=== PATIENT | male | born 1975 | race Two or more races ===

== ENCOUNTER 2019-10-07 18:33 | Emergency (ER) | payer SELFPAY ==
[~2019-10-07] VITALS: Ht 177.8 cm; Wt 77.1 kg
[2019-10-07 20:00] VITALS: BP 147/84
--- NOTE | 2019-10-07 21:41 | RAD ---
ANKLE LEFT 3V DATE: 10/07/2019 8:23 PM INDICATION: Pain after falling one week ago COMPARISON: None. FINDINGS: Bones: There is no evidence of acute fracture or dislocation. Joints: The ankle mortise is congruent. No widening of the distal tibiofibular syndesmosis. Miscellaneous: None. IMPRESSION: No evidence of acute fracture. Electronically signed by: Kofi Smith MD (10/07/2019 9:38 PM) [facility]
--- NOTE | 2019-10-08 04:00 | PHYS DOC ---
Past Medical History Past Medical History: No Pertinent History Past Surgical History: No Surgical History Alcohol Use: None Drug Use: None Adult General Chief Complaint Chief Complaint: FOOT INJURY PAIN HPI HPI Patient is a 43 year male WHO presents with left ankle injury. Patient slipped and twisted ankle ankle approximately one week ago. Reports persistent pain with weightbearing. He has not been evaluated for symptoms prior to today's ED visit. [] Review of Systems Review of Systems Review symptoms as per history of present illness. All other review symptoms are negative. All other systems were reviewed and found to be within normal limits, except as documented in this note. Allergies Allergies Allergies Coded Allergies Type Severity Reaction Last Updated Verified No Known Drug Allergies 10/07/19 No Physical Exam Physical Exam Constitutional: Well developed, well nourished, no acute distress, non-toxic appearance. [] HENT: Normocephalic, atraumatic, bilateral external ears normal, oropharynx moist, no oral exudates, nose normal. [] Extremities: Lower extremity, left ankle tenderness swelling, no deformity or bruising.[] Neurologic: Alert and oriented X 3, normal motor function, normal sensory function, no focal deficits noted. [] Psychologic: Affect normal, judgement normal, mood normal. [] Current Patient Data Vital Signs Vital Signs Date Time Temp Pulse Resp B/P (MAP) Pulse Ox O2 Delivery O2 Flow Rate FiO2 10/07/19 20:00 98.6 71 18 147/84 (105) 100 Room Air 98.6 EKG EKG [] Radiology/Procedures Radiology/Procedures [Left ankle x-ray: No obvious displaced fracture PER RADIOLOGY report] Course & Med Decision Making Course & Med Decision Making Pertinent Labs and Imaging studies reviewed. (See chart for details) [Patient placed in splint. Recommendations are for supportive care and PCP follow-up.] Dragon Disclaimer Dragon Disclaimer This electronic medical record was generated, in whole or in part, using a voice recognition dictation system. Departure Departure Impression: Primary Impression: Left ankle sprain Disposition: HOME, SELF-CARE Condition: GOOD Patient Instructions: Ankle Sprain, [id number] Additional Instructions: Please wear airsplint and take ibuprofen for pain and use crutches. Do not attempt to place weight on left leg if painful. Follow up with your PCP in 5 days for re-evaluation and review of official radiology report. CHRISTA YI DO Oct 08, 2019 04:00
== END 2019-10-07 21:49 | disposition home or self-care (01) ==
LOC: ER 18:33
DX: S93.402A Sprain of unspecified ligament of left ankle, initial encounter (principal); W18.39XA Other fall on same level, initial encounter; Y93.89 Activity, other specified; Y92.89 Other specified places as the place of occurrence of the external cause; Y99.8 Other external cause status
CPT/HCPCS: 73610; 99284; L4350

== ENCOUNTER 2021-01-06 09:56 | Emergency (ER) | payer SELFPAY ==
[~2021-01-06] VITALS: Ht 175.3 cm; Wt 93.2 kg
[2021-01-06] MEDS ORDERED: AMOX1TAB61 PO (10:14)
[2021-01-06] MEDS ORDERED: NAPR-682 PO (10:14)
--- NOTE | 2021-01-06 10:14 | PHYS DOC ---
Past Medical History Past Medical History: No Pertinent History Past Surgical History: No Surgical History Smoking Status: Never Smoker Alcohol Use: None Drug Use: None General Adult EDM: Chief Complaint: EARACHE/EAR PAIN HPI: HPI: Patient is a 45 year old male who presented to ER for evaluation of right ear pain for 1 week. Patient denies any hearing loss. Patient denies any headache, no trouble swallowing. Review of Systems: Review of Systems: Constitutional: Denies fever or chills. [] Eyes: Denies change in visual acuity. [] HENT: Denies nasal congestion or sore throat. Positive for right ear pain. Respiratory: Denies cough or shortness of breath. [] Cardiovascular: Denies chest pain or edema. [] GI: Denies abdominal pain, nausea, vomiting, bloody stools or diarrhea. [] : Denies dysuria. [] Musculoskeletal: Denies back pain or joint pain. [] Integument: Denies rash. [] Neurologic: Denies headache, focal weakness or sensory changes. [] Endocrine: Denies polyuria or polydipsia. [] Lymphatic: Denies swollen glands. [] Psychiatric: Denies depression or anxiety. [] Heart Score: Risk Factors: Risk Factors: DM, Current or recent (<one month) smoker, HTN, HLP, family history of CAD, obesity. Risk Scores: Score 0 - 3: 2.5% MACE over next 6 weeks - Discharge Home Score 4 - 6: 20.3% MACE over next 6 weeks - Admit for Clinical Observation Score 7 - 10: 72.7% MACE over next 6 weeks - Early Invasive Strategies Allergies: Allergies: Allergies Coded Allergies Type Severity Reaction Last Updated Verified No Known Drug Allergies 10/07/19 No Physical Exam: PE: Constitutional: Well developed, well nourished, no acute distress, non-toxic appearance. [] HENT: Normocephalic, atraumatic, bilateral external ears normal, oropharynx moist, no oral exudates, nose normal. RIGHT TM IS ERYTHEMA, BULGING WITH WHITISH SCALING SPOTS. RIGHT MASTOID IS NOT TENDER TO PALPATION. NO TRISMUS. Eyes: PERRLA, EOMI, conjunctiva normal, no discharge. [] Neck: Normal range of motion, no tenderness, supple, no stridor. [] Cardiovascular:Heart rate regular rhythm, no murmur [] Lungs & Thorax: Bilateral breath sounds clear to auscultation [] Abdomen: Bowel sounds normal, soft, no tenderness, no masses, no pulsatile masses. [] Skin: Warm, dry, no erythema, no rash. [] Back: No tenderness, no CVA tenderness. [] Extremities: No tenderness, no cyanosis, no clubbing, ROM intact, no edema. [] Neurologic: Alert and oriented X 3, normal motor function, normal sensory function, no focal deficits noted. [] Psychologic: Affect normal, judgement normal, mood normal. [] Current Patient Data: Labs: Current Medications Medications (Trade) Dose Ordered Sig/Bing Route PRN Reason Start Time Stop Time Status Last Admin Dose Admin Ceftriaxone Sodium (Rocephin Im) 1 gm 1X ONCE IM 01/06/21 10:15 01/06/21 10:16 Ketorolac Tromethamine (Toradol Im) 60 mg 1X ONCE IM 01/06/21 10:15 01/06/21 10:16 EKG: EKG: [] Radiology/Procedures: Radiology/Procedures: [] Course & Med Decision Making: Course & Med Decision Making Pertinent Labs and Imaging studies reviewed. (See chart for details) Patient is a 44-year-old male who presented to ER due to right ear pain for 1 week, examination show right ear otitis media, patient was given a shot of Rocephin in ER and Toradol in the ER, patient be willing Augmentin to take twice a day for 10 days. Patient was given the name of the ENT doctor for him to be followed as an outpatient Malia Disclaimer: Malia Disclaimer: This electronic medical record was generated, in whole or in part, using a voice recognition dictation system. Departure Departure Impression: Primary Impression: Otitis media, right Disposition: 01 DC HOME SELF CARE/HOMELESS Condition: STABLE Referrals: NO PCP (PCP) CAL MEZA MD Please call this ENT doctor for follow up next week. Patient Instructions: Otitis Media, Adult Additional Instructions: Thank you for visiting our Emergency Department. We appreciate you trusting us with your care. If any additional problems come up don't hesitate to return to visit us. Please follow up with your primary care provider so they can plan additional care if needed and know about the problem that you had. If symptoms worsen come back to the Emergency Department. Any concerning symptoms that start such as chest pain, shortness of air, weakness or numbness on one side of the body, running high fevers or any other concerning symptoms return to the ER. Scripts Amoxicillin/Potassium Clav (AUGMENTIN 875-125 TABLET) 1 Each Tablet 1 TAB PO BID for 10 Days, #20 TAB 0 Refills Prov: NELIA CALVIN DO 01/06/21 Naproxen Sodium (ANAPROX DS) 550 Mg Tablet 1 TAB PO BID PRN for PAIN for 15 Days, #30 TAB 0 Refills Prov: NELIA CALVIN DO 01/06/21 NELIA CALVIN DO Jan 06, 2021 10:14
[2021-01-06] MEDS ORDERED: cefTRIAXone IM 1 GM VIAL IM ONE (10:15)
[2021-01-06] MEDS ORDERED: KETOROLAC 60 MG/2 ML VIAL. IM ONE (10:15)
[2021-01-06 10:31] VITALS: BP 145/90
== END 2021-01-06 10:59 | disposition home or self-care (01) ==
LOC: ER 09:56
DX: H66.91 Otitis media, unspecified, right ear (principal)
CPT/HCPCS: 96372; 99284; J0696; J1885

== ENCOUNTER 2021-01-14 12:35 | Inpatient (IN) | payer SELFPAY ==
[~2021-01-14] VITALS: Ht 180.3 cm; Wt 92.2 kg
[~2021-01-14 12:35] MED LIST: AMOX1TAB61 PO; NAPR-682 PO
[2021-01-14] MEDS ORDERED: ACETAMINOPHEN 500 MG TABLET PO ONE (13:15)
[2021-01-14] MEDS ORDERED: IV NORMAL SALINE 1000ML BAG 1,000 ML IV ONE ×2 (13:15)
[2021-01-14] MEDS ORDERED: MORPHINE SULFATE 10 MG/ML VIAL. IV ONE ×2 (13:15→14:30)
[2021-01-14] MEDS ORDERED: PIPERACILLIN/TAZOBACTAM 4.5 GM in IV NORMAL SALINE 100ML 100 ML IV ONE (13:15)
--- NOTE | 2021-01-14 13:24 | RAD ---
EXAMINATION: XR CHEST 1V CLINICAL HISTORY: Shortness of breath, +covid EXAM DATE/TIME: 01/14/2021 1:08 PM COMPARISON: None FINDINGS: Lines, Tubes, and Devices: None. Cardiomediastinal Silhouette: Normal heart size. Lungs and Pleura: Pulmonary hypoexpansion with mild subsegmental patchy opacities in the right lower lung zone. No definite pleural effusion. No pneumothorax. Bones and Soft Tissues: Degenerative changes of the thoracic spine. IMPRESSION: Mild patchy airspace disease in the right mid to lower lung zone, nonspecific but suspicious for beatriz y infectious process. Electronically signed by: Nagi Landa DO (01/14/2021 1:22 PM) [id number]
[2021-01-14 13:52] LABS: BASO % 0 % (0-3); EOS % 0 % (0-3); HEMATOCRIT 40.9 % (39.0-53.0); HEMOGLOBIN 14.1 g/dL (13.0-17.5); LYMPH # 0.7 x10^3/uL (1.0-4.8); LYMPH % 8 % (24-48); MEAN CORPUSCULAR HEMOGLOBIN 32 pg (25-35); MEAN CORPUSCULAR HGB CONC 35 g/dL (31-37); MEAN CORPUSCULAR VOLUME 92 fL (79-100); MONO # 0.6 x10^3/uL (0.0-1.1); MONO % 6 % (0-9); NEUT # 7.7 x10^3/uL (1.8-7.7); NEUT % 85 % (31-73); PLATELET COUNT 156 x10^3/uL (140-400); RED BLOOD COUNT 4.42 x10^6/uL (4.30-5.70); RED CELL DISTRIBUTION WIDTH 12.4 % (11.5-14.5)
[2021-01-14 14:02] LABS: CALCIUM 8.1 mg/dL (8.5-10.1); GFR 80.8; POTASSIUM 3.8 mmol/L (3.5-5.1)
[2021-01-14 14:17] LABS: ALBUMIN 3.5 g/dL (3.4-5.0); ALBUMIN/GLOBULIN RATIO 0.8 (1.0-1.7); MAGNESIUM 2.1 mg/dL (1.8-2.4); TOTAL BILIRUBIN 1.1 mg/dL (0.2-1.0)
[2021-01-14 14:21] LABS: % BANDS 21 % (0-9); % BASOS 1 % (0-3); % LYMPHS 3 % (24-48); % MONOS 2 % (0-10); % SEGS 73 % (35-66); PLT ESTIMATE ADEQUATE (ADEQUATE)
[2021-01-14 14:22] LABS: TOXIC GRANULATION SLIGHT
--- NOTE | 2021-01-14 14:22 | EKG ---
[facility] [address] [place] [address] Test Date: 2021-01-14 Test Time: 13:56:18 Pat Name: MIKA STAFFORD Department: Room: Gender: M Customer Service Supervisor: : 1975 Requested By: SINAN BIRMINGHAM Order Number: [id number] Reading MD: Measurements Intervals [place] Rate: 87 P: 29 CA: 152 QRS: 137 QRSD: 98 T: 18 QT: 354 QTc: 432 Interpretive Statements SINUS RHYTHM ABNORMAL RIGHT AXIS DEVIATION ABNORMAL ECG RI6.01 No previous ECG available for comparison
[2021-01-14] MEDS ORDERED: ASPIRIN 325 MG TABLET PO ONE (14:30)
[2021-01-14] MEDS ORDERED: CONTRAST GIVEN. MC PRN (14:45)
[2021-01-14] MEDS ORDERED: IOHEXOL 350 MG/ML 100 ML VIAL. IV ONE (14:45)
[2021-01-14 14:48] LABS: BILIRUBIN,URINE SMALL (NEG); CLARITY,URINE CLEAR; COLOR,URINE AMBER; NITRITE,URINE NEGATIVE (NEG); PROTEIN,URINE 100 mg/dL (NEG-TRACE)
[2021-01-14 14:52] LABS: BARBITURATES NEG (NEG); BENZODIAZEPINES NEG (NEG); CANNABINOIDS NEG (NEG); COCAINE NEG (NEG); METHADONE NEG (NEG); OPIATES NEG (NEG); PHENCYCLIDINE NEG (NEG)
[2021-01-14 14:59] LABS: AMPHETAMINE/METHAMPHETAMINE NEG (NEG)
--- NOTE | 2021-01-14 15:02 | PDOC2 ---
SVETLANA LIM ASTROPHYSICS TEACHER 01/14/21 1502: CARDIAC CONSULT DATE OF CONSULT Date of Consult DATE: 01/14/21 TIME: 14:46 REASON FOR CONSULT Reason for Consult: Elevated troponin REFERRING PHYSICIAN Referring Physician: Wilbur SOURCE Source: Chart review, Patient HISTORY OF PRESENT ILLNESS HISTORY OF PRESENT ILLNESS This is a pleasant 45 yo male admitted for complains of shortness of breath. Reports that he has been having right ear pain and was noted a week ago for right otitis media and was given antibiotics. At home he started having fever, chills, productive cough with yellow sputum. He has not been able to go to sleep. His SOA has been increasing. No loss of taste or smell. His son and his are sick as well with the same symptoms. He then went to go get tested last Monday and was told that he was positive for the covid-19. Denies any chest pressure and no prior hx of CAD nor VTE. His troponin has been noted to be mildly elevated hence this consult. He did vomit this morning. PAST MEDICAL HISTORY Past Medical History No pertinent history PAST SURGICAL HISTORY Past Surgical History: No pertinent history FAMILY HISTORY Family History noncontributory to CV SOCIAL HISTORY Smoke: No ALCOHOL: none Drugs: None Lives: with Family CURRENT MEDICATIONS CURRENT MEDICATIONS Current Medications Medications (Trade) Dose Ordered Sig/Bing Route PRN Reason Start Time Stop Time Status Last Admin Dose Admin Piperacillin Sod/ Tazobactam Sod 4.5 gm/Sodium Chloride 100 ml @ 200 mls/hr 1X ONCE IV 01/14/21 13:15 01/14/21 13:44 DC 01/14/21 13:45 Sodium Chloride 1,000 ml @ 1,000 mls/hr 1X ONCE IV 01/14/21 13:15 01/14/21 14:14 DC 01/14/21 13:26 Sodium Chloride 1,000 ml @ 1,000 mls/hr 1X ONCE IV 01/14/21 13:15 01/14/21 14:14 DC 01/14/21 14:35 Acetaminophen (Tylenol) 1,000 mg 1X ONCE PO 01/14/21 13:15 01/14/21 13:16 DC 01/14/21 13:27 Morphine Sulfate (Morphine Sulfate) 5 mg 1X ONCE IV 01/14/21 13:15 01/14/21 13:16 DC 01/14/21 13:27 Morphine Sulfate (Morphine Sulfate) 5 mg 1X ONCE IV 01/14/21 14:30 01/14/21 14:31 DC 01/14/21 14:40 Aspirin (Darinel Aspirin) 325 mg 1X ONCE PO 01/14/21 14:30 01/14/21 14:31 DC 01/14/21 14:39 ALLERGIES ALLERGIES: Coded Allergies: No Known Drug Allergies (Unverified , 10/07/19) ROS Review of System 14 point ROS evaluated with pertinent positives noted per HPI PHYSICAL EXAM General: Alert, Oriented X3, Cooperative, No acute distress HEENT: Atraumatic, Mucous membr. moist/pink Lungs: Other (diminished) Heart: Regular rate (SR), Other (distant heart sounds) Abdomen: Soft, No tenderness Extremities: No cyanosis, No edema Skin: No breakdown, No significant lesion Neuro: Normal speech, Sensation intact Psych/Mental Status: Mental status NL, Mood NL MUSCULOSKELETAL: Osteoarthritic changes both hands VITALS/I&O VITALS/I&O: Vital Signs Date Time Temp Pulse Resp B/P (MAP) Pulse Ox O2 Delivery O2 Flow Rate FiO2 01/14/21 12:35 103.1 96 24 137/83 (101) 92 Room Air 103.1 LABS Lab: Laboratory Tests Test 01/14/21 13:25 White Blood Count 9.0 x10^3/uL (4.0-11.0) Red Blood Count 4.42 x10^6/uL (4.30-5.70) Hemoglobin 14.1 g/dL (13.0-17.5) Hematocrit 40.9 % (39.0-53.0) Mean Corpuscular Volume 92 fL (79-100) Mean Corpuscular Hemoglobin 32 pg (25-35) Mean Corpuscular Hemoglobin Concent 35 g/dL (31-37) Red Cell Distribution Width 12.4 % (11.5-14.5) Platelet Count 156 x10^3/uL (140-400) Neutrophils (%) (Auto) 85 % (31-73) H Lymphocytes (%) (Auto) 8 % (24-48) L Monocytes (%) (Auto) 6 % (0-9) Eosinophils (%) (Auto) 0 % (0-3) Basophils (%) (Auto) 0 % (0-3) Neutrophils # (Auto) 7.7 x10^3/uL (1.8-7.7) Lymphocytes # (Auto) 0.7 x10^3/uL (1.0-4.8) L Monocytes # (Auto) 0.6 x10^3/uL (0.0-1.1) Eosinophils # (Auto) 0.0 x10^3/uL (0.0-0.7) Basophils # (Auto) 0.0 x10^3/uL (0.0-0.2) Segmented Neutrophils % 73 % (35-66) H Band Neutrophils % 21 % (0-9) H Lymphocytes % 3 % (24-48) L Monocytes % 2 % (0-10) Basophils % 1 % (0-3) Toxic Granulation Slight Platelet Estimate Adequate (ADEQUATE) D-Dimer ([place]ecille) 0.71 ug/mlFEU (0.00-0.50) H Sodium Level 134 mmol/L (136-145) L Potassium Level 3.8 mmol/L (3.5-5.1) Chloride Level 94 mmol/L (98-107) L Carbon Dioxide Level 26 mmol/L (21-32) Anion Gap 14 (6-14) Blood Urea Nitrogen 14 mg/dL (8-26) Creatinine 1.0 mg/dL (0.7-1.3) Estimated GFR (Cockcroft-Gault) 80.8 BUN/Creatinine Ratio 14 (6-20) Glucose Level 102 mg/dL (70-99) H Lactic Acid Level 1.1 mmol/L (0.4-2.0) Calcium Level 8.1 mg/dL (8.5-10.1) L Magnesium Level 2.1 mg/dL (1.8-2.4) Total Bilirubin 1.1 mg/dL (0.2-1.0) H Aspartate Amino Transferase (AST) 97 U/L (15-37) H Alanine Aminotransferase (ALT) 124 U/L (16-63) H Alkaline Phosphatase 78 U/L (46-116) Troponin I Quantitative 0.359 ng/mL (0.000-0.055) TV-Jqg-G-Type Natriuretic Peptide 42 pg/mL (0-124) Total Protein 8.0 g/dL (6.4-8.2) Albumin 3.5 g/dL (3.4-5.0) Albumin/Globulin Ratio 0.8 (1.0-1.7) L Lipase 209 U/L (73-393) Procalcitonin < 0.10 ng/mL (0.00-0.10) Laboratory Tests 01/14/21 13:25 Laboratory Tests 01/14/21 13:25 ASSESSMENT/PLAN ASSESSMENT/PLAN 1. Covid-19 Pneumonia with high fever and dyspnea and WBC noted with left shift 2. Right AOM 3. Elevated DDIMER with Abnormal EKG noted with S1Q3T3 with right axis deviation: will need to rule out PE 4. Mild troponin: trop at 0.3, Suspect demand mediated from covid-19 PNA, CP free. 5. Mild transaminitis Recommendations 1. ASA. CTA chest 2. FLP tomorrow 3. Covid-19 treatment initiation per PCP 4. Outpt TTE when full recovered from covid 5. Trend trop, supportive care. LARRY LAWSON MD 01/14/21 1808: CARDIAC CONSULT ASSESSMENT/PLAN ASSESSMENT/PLAN Patient seen and evaluated. I agree with our nurse practitioners assessment and plan as above. COVID-19 pneumonia. Treatment as per the primary and probable pulmonary ser vices. Elevated D-dimer. CTA of the chest shows no PE. Minimally elevated troponin at 0.3. Consistent with demand ischemia. No chest pain. We will continue to trend troponin. Future echocardiogram as per Covid guidelines. SVETLANA LIM APRN Jan 14, 2021 15:02 LARRY LAWSON MD Jan 14, 2021 18:08
[2021-01-14 15:16] LABS: RBC,URINE 0 /HPF (0-2)
[2021-01-14 15:17] LABS: WBC,URINE OCC /HPF (0-4)
[2021-01-14 15:19] LABS: BACTERIA,URINE 0 /HPF (0-FEW)
--- NOTE | 2021-01-14 15:29 | RAD ---
CT angiography chest with contrast PQRS statement: CT scans at this facility use dose reduction including either automated exposure cont rol, iterative reconstructions, and /or weight based radiation dosing via mA and kV modification when appropriate to reduce radiation dose to as low as reasonably achievable. Contrast: 100 mL of opaque intravenous contrast. 3-D reconstructions of the arteries acquired. HISTORY: Positive Covid infection. Cough. Shortness of breath. FINDINGS: Borderline cardiomegaly. Aorta and esophagus are unremarkable. There is left coronary calci fied plaque. No pulmonary artery emboli. There is mild mediastinal and hilar adenopathy largest subca rinal mediastinal lymph node measuring 2.3 x 1.2 cm and the largest hilar lymph nodes measuring 1.2 x 1.0 cm. There is a bronchus stenosis from the right upper lobe bronchus. Trachea unremarkable. There are bilateral heterogeneous groundglass opacities involving both the upper and lower lung zone. No p neumothorax. No pleural effusions. Bones are unremarkable. IMPRESSION: 1. No pulmonary artery emboli. 2. Extensive bilateral heterogeneous pulmonary groundglass opacities most typical of an infectious/in flammatory process. This is a typical imaging pattern reported of (COVID -19) pneumonia (peripheral b ilateral groundglass opacities with or without consolidation or crazy paving, or a reverse halo sign) . Other processes such as influenza pneumonia and organizing pneumonia, as can be seen with drug [place] and connective tissue disease, can cause a similar imaging pattern. Consider follow-up CT imagin g in 3 months to document that these resolve. 3. Mild mediastinal and hilar adenopathy. Attention on follow-up in 3 months is advised. Electronically signed by: Layo Haley MD (01/14/2021 3:26 PM) [facility]
[2021-01-14] MEDS ORDERED: DEXAMETHASONE SOD PHOS 20 MG/5 ML VIAL. IV ONE (15:30)
[2021-01-14] MEDS ORDERED: HYDROmorphone 2 MG/ML VIAL IVP ONE (15:30)
[2021-01-14] MEDS ORDERED: AZITHRMYCN 500MG IVPB FOR OMNI 250 ML IV ONE (15:30)
--- NOTE | 2021-01-14 17:16 | PHYS DOC ---
Past Medical History Past Medical History: Other Additional Past Medical Histor: POSITIVE FOR COVID-19 01/10/21 Past Surgical History: No Surgical History Smoking Status: Never Smoker Alcohol Use: Occasionally Drug Use: None General Adult EDM: Chief Complaint: SHORTNESS OF BREATH HPI: HPI: Patient is a 45 year old male who presents to the ED today complaining of fever, shortness of breath, symptoms began 2 days ago. Patient is also complaining of moderate right ear pain that began 1 week ago, he states he was seen in the ED and was diagnosed with otitis media and sent home with antibiotics. He states has not obtained much relief with this antibiotics. He is also complaining of productive cough for 2 days. He states on Monday he was tested for COVID-19 and was positive. He states his and son have similar symptoms. Denies any chest pain. States symptoms are worse on exertion Review of Systems: Review of Systems: Constitutional: Reports fever Eyes: Denies change in visual acuity. [] HENT: Reports right ear pain. Denies nasal congestion or sore throat. [] Respiratory: Reports cough and shortness of breath. [] Cardiovascular: Denies chest pain or edema. [] GI: Denies abdominal pain, nausea, vomiting, bloody stools or diarrhea. [] : Denies dysuria. [] Musculoskeletal: Denies back pain or joint pain. [] Integument: Denies rash. [] Neurologic: Denies headache, focal weakness or sensory changes. [] ] Psychiatric: Denies depression or anxiety. [] Heart Score: Risk Factors: Risk Factors: DM, Current or recent (<one month) smoker, HTN, HLP, family history of CAD, obesity. Risk Scores: Score 0 - 3: 2.5% MACE over next 6 weeks - Discharge Home Score 4 - 6: 20.3% MACE over next 6 weeks - Admit for Clinical Observation Score 7 - 10: 72.7% MACE over next 6 weeks - Early Invasive Strategies Current Medications: Current Medications Medications (Trade) Dose Ordered Sig/Bing Start Time Stop Time Status Last Admin Dose Admin Acetaminophen (Tylenol) 1,000 mg 1X ONCE 01/14/21 13:15 01/14/21 13:16 DC 01/14/21 13:27 1,000 MG Aspirin (Darinel Aspirin) 325 mg 1X ONCE 01/14/21 14:30 01/14/21 14:31 DC 01/14/21 14:39 325 MG Azithromycin 250 ml @ 250 mls/hr 1X ONCE 01/14/21 15:30 01/14/21 16:29 DC 01/14/21 15:47 250 MLS/HR Dexamethasone Sodium Phosphate (Decadron) 10 mg 1X ONCE 01/14/21 15:30 01/14/21 15:31 DC 01/14/21 15:46 10 MG Hydromorphone HCl (Dilaudid) 1 mg 1X ONCE 01/14/21 15:30 01/14/21 15:31 DC 01/14/21 15:46 1 MG Info (CONTRAST GIVEN -- Rx MONITORING) 1 each PRN DAILY PRN 01/14/21 14:45 01/16/21 14:44 Iohexol (Omnipaque 350 Mg/ml) 100 ml 1X ONCE 01/14/21 14:45 01/14/21 14:46 DC 01/14/21 14:55 100 ML Morphine Sulfate (Morphine Sulfate) 5 mg 1X ONCE 01/14/21 14:30 01/14/21 14:31 DC 01/14/21 14:40 5 MG Piperacillin Sod/ Tazobactam Sod 4.5 gm/Sodium Chloride 100 ml @ 200 mls/hr 1X ONCE 01/14/21 13:15 01/14/21 13:44 DC 01/14/21 13:45 200 MLS/HR Sodium Chloride 1,000 ml @ 1,000 mls/hr 1X ONCE 01/14/21 13:15 01/14/21 14:14 DC 01/14/21 14:35 1,000 MLS/HR Allergies: Allergies: Allergies Coded Allergies Type Severity Reaction Last Updated Verified No Known Drug Allergies 10/07/19 No Physical Exam: PE: Constitutional: Well developed, well nourished, no acute distress, non-toxic appearance. [] HENT: Normocephalic, atraumatic, bilateral external ears normal, oropharynx moist, no oral exudates, nose normal. Right TM cannot be visualized, there is mild amount of exudate in the ear canal. Eyes: PERRLA, EOMI, conjunctiva normal, no discharge. [] Neck: Normal range of motion, no tenderness, supple, no stridor. [] Cardiovascular:Heart rate regular rhythm, no murmur [] Lungs & Thorax: Bilateral breath sounds clear to auscultation [] Abdomen: Bowel sounds normal, soft, no tenderness, no masses, no pulsatile masses. [] Skin: Warm, dry, no erythema, no rash. [] Back: No tenderness, no CVA tenderness. [] Extremities: No tenderness, no cyanosis, no clubbing, ROM intact, no edema. [] Neurologic: Alert and oriented X 3, normal motor function, normal sensory function, no focal deficits noted. [] Psychologic: Affect normal, judgement normal, mood normal. [] Current Patient Data: Labs: Laboratory Tests Test 01/14/21 13:25 01/14/21 14:30 White Blood Count 9.0 x10^3/uL (4.0-11.0) Red Blood Count 4.42 x10^6/uL (4.30-5.70) Hemoglobin 14.1 g/dL (13.0-17.5) Hematocrit 40.9 % (39.0-53.0) Mean Corpuscular Volume 92 fL (79-100) Mean Corpuscular Hemoglobin 32 pg (25-35) Mean Corpuscular Hemoglobin Concent 35 g/dL (31-37) Red Cell Distribution Width 12.4 % (11.5-14.5) Platelet Count 156 x10^3/uL (140-400) Neutrophils (%) (Auto) 85 % (31-73) H Lymphocytes (%) (Auto) 8 % (24-48) L Monocytes (%) (Auto) 6 % (0-9) Eosinophils (%) (Auto) 0 % (0-3) Basophils (%) (Auto) 0 % (0-3) Neutrophils # (Auto) 7.7 x10^3/uL (1.8-7.7) Lymphocytes # (Auto) 0.7 x10^3/uL (1.0-4.8) L Monocytes # (Auto) 0.6 x10^3/uL (0.0-1.1) Eosinophils # (Auto) 0.0 x10^3/uL (0.0-0.7) Basophils # (Auto) 0.0 x10^3/uL (0.0-0.2) Segmented Neutrophils % 73 % (35-66) H Band Neutrophils % 21 % (0-9) H Lymphocytes % 3 % (24-48) L Monocytes % 2 % (0-10) Basophils % 1 % (0-3) Toxic Granulation Slight Platelet Estimate Adequate (ADEQUATE) D-Dimer (Cecille) 0.71 ug/mlFEU (0.00-0.50) H Sodium Level 134 mmol/L (136-145) L Potassium Level 3.8 mmol/L (3.5-5.1) Chloride Level 94 mmol/L (98-107) L Carbon Dioxide Level 26 mmol/L (21-32) Anion Gap 14 (6-14) Blood Urea Nitrogen 14 mg/dL (8-26) Creatinine 1.0 mg/dL (0.7-1.3) Estimated GFR (Cockcroft-Gault) 80.8 BUN/Creatinine Ratio 14 (6-20) Glucose Level 102 mg/dL (70-99) H Lactic Acid Level 1.1 mmol/L (0.4-2.0) Calcium Level 8.1 mg/dL (8.5-10.1) L Magnesium Level 2.1 mg/dL (1.8-2.4) Total Bilirubin 1.1 mg/dL (0.2-1.0) H Aspartate Amino Transferase (AST) 97 U/L (15-37) H Alanine Aminotransferase (ALT) 124 U/L (16-63) H Alkaline Phosphatase 78 U/L (46-116) Troponin I Quantitative 0.359 ng/mL (0.000-0.055) WN-Doe-A-Type Natriuretic Peptide 42 pg/mL (0-124) Total Protein 8.0 g/dL (6.4-8.2) Albumin 3.5 g/dL (3.4-5.0) Albumin/Globulin Ratio 0.8 (1.0-1.7) L Lipase 209 U/L (73-393) Procalcitonin < 0.10 ng/mL (0.00-0.10) Urine Collection Type Void Urine Color Jailene Urine Clarity Clear Urine pH 6.0 (<5.0-8.0) Urine Specific [place] >=1.030 (1.000-1.030) Urine Protein 100 mg/dL (NEG-TRACE) Urine Glucose (UA) Negative mg/dL (NEG) Urine Ketones (Stick) Trace mg/dL (NEG) Urine Blood Negative (NEG) Urine Nitrite Negative (NEG) Urine Bilirubin Small (NEG) Urine Urobilinogen Dipstick 1.0 mg/dL (0.2 mg/dL) Urine Leukocyte Esterase Trace (NEG) Urine RBC 0 /HPF (0-2) Urine WBC Occ /HPF (0-4) Urine Squamous Epithelial Cells Few /LPF Urine Bacteria 0 /HPF (0-FEW) Urine Mucus Slight /LPF Urine Opiates Screen Neg (NEG) Urine Methadone Screen Neg (NEG) Urine Barbiturates Neg (NEG) Urine Phencyclidine Screen Neg (NEG) Urine Amphetamine/Methamphetamine Neg (NEG) Urine Benzodiazepines Screen Neg (NEG) Urine Cocaine Screen Neg (NEG) Urine Cannabinoids Screen Neg (NEG) Urine Ethyl Alcohol Neg (NEG) Laboratory Tests 01/14/21 13:25 Laboratory Tests 01/14/21 13:25 Vital Signs: Vital Signs Date Time Temp Pulse Resp B/P (MAP) Pulse Ox O2 Delivery O2 Flow Rate FiO2 01/14/21 15:44 98.7 77 20 111/63 (79) 94 Room Air 98.7 EKG: EK Interpreted by Dr. Joshi sinus rhythm HR 87 no STEMI[] Radiology/Procedures: Radiology/Procedures: []PROCEDURE: CT ANGIOGRAPHY CHEST CT angiography chest with contrast PQRS statement: CT scans at this facility use dose reduction including either automated exposure control, iterative reconstructions, and /or weight based radiation dosing via mA and kV modification when appropriate to reduce radiation dose to as low as reasonably achievable. Contrast: 100 mL of opaque intravenous contrast. 3-D reconstructions of the arteries acquired. HISTORY: Positive Covid infection. Cough. Shortness of breath. FINDINGS: Borderline cardiomegaly. Aorta and esophagus are unremarkable. There is left coronary calcified plaque. No pulmonary artery emboli. There is mild mediastinal and hilar adenopathy largest subcarinal mediastinal lymph node measuring 2.3 x 1.2 cm and the largest hilar lymph nodes measuring 1.2 x 1.0 cm. There is a bronchus stenosis from the right upper lobe bronchus. Trachea unremarkable. There are bilateral heterogeneous groundglass opacities involving both the upper and lower lung zone. No pneumothorax. No pleural effusions. Bones are unremarkable. IMPRESSION: 1. No pulmonary artery emboli. 2. Extensive bilateral heterogeneous pulmonary groundglass opacities most typical of an infectious/inflammatory process. This is a typical imaging pattern reported of (COVID -19) pneumonia (peripheral bilateral groundglass opacities with or without consolidation or crazy paving, or a reverse halo sign). Other processes such as influenza pneumonia and organizing pneumonia, as can be seen with drug toxicity and connective tissue disease, can cause a similar imaging pattern. Consider follow-up CT imaging in 3 months to document that these resolve. 3. Mild mediastinal and hilar adenopathy. Attention on follow-up in 3 months is advised. Electronically signed by: Rose Haley MD (01/14/2021 3:26 PM) [facility] DICTATED and SIGNED BY: ROSE HALEY MD DATE: 01/14/21 [id number] PROCEDURE: PORTABLE CHEST 1V EXAMINATION: XR CHEST 1V CLINICAL HISTORY: Shortness of breath, +covid EXAM DATE/TIME: 01/14/2021 1:08 PM COMPARISON: None FINDINGS: Lines, Tubes, and Devices: None. Cardiomediastinal Silhouette: Normal heart size. Lungs and Pleura: Pulmonary hypoexpansion with mild subsegmental patchy opacities in the right lower lung zone. No definite pleural effusion. No pneumothorax. Bones and Soft Tissues: Degenerative changes of the thoracic spine. IMPRESSION: Mild patchy airspace disease in the right mid to lower lung zone, nonspecific but suspicious for early infectious process. Electronically signed by: Nagi Grace DO (01/14/2021 1:22 PM) [id number] DICTATED and SIGNED BY: NAGI GRACE DO DATE: 01/14/21 [id number] Course & Med Decision Making: Course & Med Decision Making Pertinent Labs and Imaging studies reviewed. (See chart for details) This is a 45-year-old male patient positive for COVID-19 on Monday presenting today complaining of shortness of breath, fever for 2 days, also complaining of cough. Also complaining of right ear pain for a week. Vitals on arrival to the ED temperature 103.1, heart rate 96, respiration 24 on room air, blood pressure 137/83, O2 sats 92% on room air. CBC with a normal WBC but noted for bandemia and significant left shift, lactic is normal, CMP with AST of 97, ALT of 124, ALK 78 D-dimer 0.71, CTA chest was obtained which was noted for multiple groundglass opacities consistent with Covid pneumonia. No PE. Troponin 0 0.359, negative EKG, spoke to Rae NARCOTICS DETECTIVE for cardiology who came and saw patient. Aspirin was given to patient. Spoke to Dr. Leal who accepted patient for admission Malia Disclaimer: Malia Disclaimer: This electronic medical record was generated, in whole or in part, using a voice recognition dictation system. Departure Departure Impression: Primary Impression: Lab test positive for detection of COVID-19 virus Additional Impressions: Shortness of breath Pneumonia of both lower lobes Qualified Codes: J18.9 - Pneumonia, unspecified organism NSTEMI (non-ST elevated myocardial infarction) Fever Qualified Codes: R50.9 - Fever, unspecified Disposition: 09 ADMITTED INPT THIS HOSP Condition: STABLE Referrals: NO PCP (PCP) SINAN BIRMINGHAM APRN Jan 14, 2021 17:16
[2021-01-14] MEDS ORDERED: ACETAMINOPHEN 325 MG TABLET. PO PRN (17:30)
[2021-01-14] MEDS ORDERED: MORPHINE SULFATE 4 MG/ML VIAL. IV PRN (17:30)
[2021-01-14] MEDS ORDERED: ONDANSETRON PF 4 MG/2 ML VIAL. IV PRN (17:30)
[2021-01-14] MEDS ORDERED: PIP/TAZO PER PHARMACY MC PRN (17:45)
--- NOTE | 2021-01-14 18:44 | HP ---
ADMIT DATE: 01/14/2021 CHIEF COMPLAINT: Shortness of breath, weakness. HISTORY OF PRESENT ILLNESS: The patient is a pleasant middle-aged male who presents with shortness of breath and weakness. He apparently tested positive for COVID 3 days ago. He has got associated cough. It has been occurring for several days, rated at 9/10, worse with movement, better with sitting still. I discussed the case with ER physician. The patient also has an elevated troponin of 0.359. We are going to admit the patient and consult Cardiology and treat him for his COVID-19. PAST MEDICAL HISTORY: Recent COVID-19 positive. ALLERGIES: None. FAMILY HISTORY: Diabetes. SOCIAL HISTORY: Does not drink, smoke or take drugs. MEDICATIONS: Reviewed, please refer to the MRAD. REVIEW OF SYSTEMS: GENERAL: No history of weight change, weakness or fevers. SKIN: No bruising, hair changes or rashes. EYES: No blurred, double or loss of vision. NOSE AND THROAT: No history of nosebleeds, hoarseness or sore throat. HEART: No history of palpitations, chest pain or shortness of breath on exertion. LUNGS: He complains of shortness of breath and cough. GASTROINTESTINAL: Denies changes in appetite, nausea, vomiting, diarrhea or constipation. GENITOURINARY: No history of frequency, urgency, hesitancy or nocturia. NEUROLOGIC: Denies history of numbness, tingling, tremor or weakness. PSYCHIATRIC: No history of panic, anxiety or depression. ENDOCRINE: No history of heat or cold intolerance, polyuria or polydipsia. EXTREMITIES: Denies muscle weakness, joint pain, pain on walking or stiffness. PHYSICAL EXAMINATION: VITALS: Within normal limits and are stable. GENERAL: No apparent distress. Alert and oriented. HEENT: Normal cephalic atraumatic, external auditory canals are patent. EYES: Extraocular muscles are intact, pupils are equally round and reactive to light and accommodation. MUSCULOSKELETAL: Well developed, well nourished, good range of motion. ENDOCRINE: No thyromegaly was palpated. LYMPHATICS: No cervical chain or axillary nodes were noted. HEMATOPOIETIC: No bruising NECK: Supple, no JVD, no thyromegaly was noted. LUNGS: He has bibasilar crackles. HEART: RRR, S1, S2 present. Peripheral pulses intact, no obvious murmurs were noted. ABDOMEN: Soft, nontender. Positive bowel sounds no organomegaly, normal bowel sounds. EXTREMITIES: Without any cyanosis, clubbing, or edema. Pedal pulses intact, Homans sign is negative. NEUROLOGIC: Normal speech, normal tone. A & O x 3, moves all extremities, no obvious focal deficits. PSYCHIATRIC: Normal affect, normal mood. Stable. SKIN: No ulcerations or rashes, good skin turgor, no jaundice. VASCULAR: Good capillary refill, neurovascular bundle appears to be intact. LABORATORY DATA: White count 9, hemoglobin 14, platelets 156. Electrolytes: Sodium 134, potassium 3.8, chloride 94, bicarbonate 26, BUN 14, creatinine 1, glucose 102. Troponin 0.359. AST and ALT are little high at [address] of the chest is negative for PE, but does show ground-glass opacities consistent with probable viral infection. ASSESSMENT AND PLAN: COVID-19 respiratory failure and elevated troponin with possible acute myocardial infarction, hyponatremia, elevated troponin. The patient has been admitted. We will consult Cardiology. COVID protocol, home medications, DVT prophylaxis. Full code. CC TIME: 31 minutes. ALL Aundrea KOCH DO DR: RON/damaris JOB#: [id number] / [id number]
[2021-01-14] MEDS: PIPERACILLIN/TAZOBACTAM 3.375 GM in IV NORMAL SALINE 50ML 50 ML IV SCH ×2 (20:00→23:42)
[2021-01-14 21:15] VITALS: BP 121/71
--- NOTE | 2021-01-14 22:00 | NUR ---
Admit from ED to [facility] room [id number] via WC. Stood from [place] and ambulated into room with standby assist. Steady gait. A/O x 4 on arrival to unit. Pleasant. Orientated to room and call light. Reviewed POC to include Tele monitoring, IV ABx, lab draws. Verbalized understanding. Resting in bed with call light at hand.
[2021-01-14 23:00] VITALS: BP 128/75
[2021-01-14] MEDS: methylPREDNISolone SOD SUCC PF 40 MG/ML VIAL. IV SCH (23:42)
[2021-01-14] MEDS: DOXYCYCLINE HYCLATE 100 MG TABLET PO SCH (23:42)
[2021-01-15 03:00] VITALS: BP 125/77
--- NOTE | 2021-01-15 03:01 | NUR ---
Upon reviewing home med list and pharmacy patient reports he does not take any medications at home and he will ask his family which Pharmacy to use.
[2021-01-15 03:31] LABS: BASO % 0 % (0-3); EOS % 0 % (0-3); HEMATOCRIT 37.1 % (39.0-53.0); LYMPH # 0.6 x10^3/uL (1.0-4.8); LYMPH % 9 % (24-48); MEAN CORPUSCULAR HEMOGLOBIN 32 pg (25-35); MEAN CORPUSCULAR HGB CONC 35 g/dL (31-37); MEAN CORPUSCULAR VOLUME 92 fL (79-100); MONO # 0.2 x10^3/uL (0.0-1.1); MONO % 3 % (0-9); NEUT # 6.2 x10^3/uL (1.8-7.7); NEUT % 88 % (31-73); PLATELET COUNT 155 x10^3/uL (140-400); RED BLOOD COUNT 4.03 x10^6/uL (4.30-5.70); RED CELL DISTRIBUTION WIDTH 12.4 % (11.5-14.5)
[2021-01-15 03:47] LABS: ALBUMIN 3.1 g/dL (3.4-5.0); ALBUMIN/GLOBULIN RATIO 0.9 (1.0-1.7); CALCIUM 7.4 mg/dL (8.5-10.1); CREATININE 0.9 mg/dL (0.7-1.3); GFR 91.3; POTASSIUM 4.4 mmol/L (3.5-5.1); TOTAL PROTEIN 6.6 g/dL (6.4-8.2)
[2021-01-15] MEDS: PIPERACILLIN/TAZOBACTAM 3.375 GM in IV NORMAL SALINE 50ML 50 ML IV SCH ×4 (05:18→23:55)
[2021-01-15 07:00] VITALS: BP 129/66
[2021-01-15] MEDS: methylPREDNISolone SOD SUCC PF 40 MG/ML VIAL. IV SCH ×2 (08:08→21:21)
[2021-01-15] MEDS: ASPIRIN 325 MG TABLET PO SCH (08:09)
[2021-01-15] MEDS: DOXYCYCLINE HYCLATE 100 MG TABLET PO SCH ×2 (08:09→21:21)
[2021-01-15] MEDS: MULTIVITAMIN with MINERAL TABLET. PO SCH (08:09)
[2021-01-15 11:00] VITALS: BP 140/74
--- NOTE | 2021-01-15 11:22 | PDOC ---
[employer] PROGRESS NOTE Date of Service DOS: DATE: 01/15/21 TIME: 11:09 Chief Complaint Chief Complaint Shortness of breath Fatigue COVID Positive Elevated Troponins Elevated Liver enzymes, Abnormal chest xray History of Present Illness History of Present Illness 01/15- Pt seen and examined. Discussed plan at [facility] covid protocol with exception of remdesivir as pt does not (yet) require Oxygen therapy. D-dimer is also elevated - .71, alk phos is 0.308, AST=82, HSY=839. Chest xray shoed Right lower lung has patchy subsegmental opacities and is hypoexpansion. CT show ground glass consistent with COVID/viral pneumonia. The patient is a pleasant middle-aged male who presents with shortness of breath and weakness. He apparently tested positive for COVID 3 days ago. He has got associated cough. It has been occurring for several days, rated at 9/10, worse with movement, better with sitting still. I discussed the case with ER physician. The patient also has an elevated troponin of 0.359. We are going to admit the patient and consult Cardiology and treat him for his COVID-19. Vitals/I&O Vitals/I&O: Vital Signs Date Time Temp Pulse Resp B/P (MAP) Pulse Ox O2 Delivery O2 Flow Rate FiO2 01/15/21 08:00 Room Air 01/15/21 07:00 96.8 62 26 129/66 (87) 95 96.8 I & O 01/14/21 01/14/21 01/15/21 15:00 23:00 07:00 Intake Total 1100 ml 1000 ml 550 ml Output Total 150 ml 500 ml 0 ml Balance 950 ml 500 ml 550 ml Physical Exam General: Alert, Oriented X3, Cooperative, No acute distress Heart: Regular rate (SR), Other (distant heart sounds) Abdomen: Soft, No tenderness Extremities: No cyanosis, No edema Skin: No breakdown, No significant lesion Labs Labs: Laboratory Tests Test 01/14/21 13:25 01/14/21 14:30 01/14/21 20:00 01/15/21 01:45 White Blood Count 9.0 x10^3/uL (4.0-11.0) 7.0 x10^3/uL (4.0-11.0) Red Blood Count 4.42 x10^6/uL (4.30-5.70) 4.03 x10^6/uL (4.30-5.70) Hemoglobin 14.1 g/dL (13.0-17.5) 13.0 g/dL (13.0-17.5) Hematocrit 40.9 % (39.0-53.0) 37.1 % (39.0-53.0) Mean Corpuscular Volume 92 fL (79-100) 92 fL (79-100) Mean Corpuscular Hemoglobin 32 pg (25-35) 32 pg (25-35) Mean Corpuscular Hemoglobin Concent 35 g/dL (31-37) 35 g/dL (31-37) Red Cell Distribution Width 12.4 % (11.5-14.5) 12.4 % (11.5-14.5) Platelet Count 156 x10^3/uL (140-400) 155 x10^3/uL (140-400) Neutrophils (%) (Auto) 85 % (31-73) 88 % (31-73) Lymphocytes (%) (Auto) 8 % (24-48) 9 % (24-48) Monocytes (%) (Auto) 6 % (0-9) 3 % (0-9) Eosinophils (%) (Auto) 0 % (0-3) 0 % (0-3) Basophils (%) (Auto) 0 % (0-3) 0 % (0-3) Neutrophils # (Auto) 7.7 x10^3/uL (1.8-7.7) 6.2 x10^3/uL (1.8-7.7) Lymphocytes # (Auto) 0.7 x10^3/uL (1.0-4.8) 0.6 x10^3/uL (1.0-4.8) Monocytes # (Auto) 0.6 x10^3/uL (0.0-1.1) 0.2 x10^3/uL (0.0-1.1) Eosinophils # (Auto) 0.0 x10^3/uL (0.0-0.7) 0.0 x10^3/uL (0.0-0.7) Basophils # (Auto) 0.0 x10^3/uL (0.0-0.2) 0.0 x10^3/uL (0.0-0.2) Segmented Neutrophils % 73 % (35-66) Band Neutrophils % 21 % (0-9) Lymphocytes % 3 % (24-48) Monocytes % 2 % (0-10) Basophils % 1 % (0-3) Toxic Granulation Slight Platelet Estimate Adequate (ADEQUATE) D-Dimer (Cecille) 0.71 ug/mlFEU (0.00-0.50) Sodium Level 134 mmol/L (136-145) 140 mmol/L (136-145) Potassium Level 3.8 mmol/L (3.5-5.1) 4.4 mmol/L (3.5-5.1) Chloride Level 94 mmol/L (98-107) 102 mmol/L (98-107) Carbon Dioxide Level 26 mmol/L (21-32) 27 mmol/L (21-32) Anion Gap 14 (6-14) 11 (6-14) Blood Urea Nitrogen 14 mg/dL (8-26) 14 mg/dL (8-26) Creatinine 1.0 mg/dL (0.7-1.3) 0.9 mg/dL (0.7-1.3) Estimated GFR (Cockcroft-Gault) 80.8 91.3 BUN/Creatinine Ratio 14 (6-20) 16 (6-20) Glucose Level 102 mg/dL (70-99) 132 mg/dL (70-99) Lactic Acid Level 1.1 mmol/L (0.4-2.0) Calcium Level 8.1 mg/dL (8.5-10.1) 7.4 mg/dL (8.5-10.1) Magnesium Level 2.1 mg/dL (1.8-2.4) Total Bilirubin 1.1 mg/dL (0.2-1.0) 1.0 mg/dL (0.2-1.0) Aspartate Amino Transf (AST/SGOT) 97 U/L (15-37) 82 U/L (15-37) Alanine Aminotransferase (ALT/SGPT) 124 U/L (16-63) 115 U/L (16-63) Alkaline Phosphatase 78 U/L (46-116) 66 U/L (46-116) Troponin I Quantitative 0.359 ng/mL (0.000-0.055) 0.370 ng/mL (0.000-0.055) 0.308 ng/mL (0.000-0.055) UY-Vsj-B-Type Natriuretic Peptide 42 pg/mL (0-124) Total Protein 8.0 g/dL (6.4-8.2) 6.6 g/dL (6.4-8.2) Albumin 3.5 g/dL (3.4-5.0) 3.1 g/dL (3.4-5.0) Albumin/Globulin Ratio 0.8 (1.0-1.7) 0.9 (1.0-1.7) Lipase 209 U/L (73-393) Procalcitonin < 0.10 ng/mL (0.00-0.10) Urine Collection Type Void Urine Color Jailene Urine Clarity Clear Urine pH 6.0 (<5.0-8.0) Urine Specific [place] >=1.030 (1.000-1.030) Urine Protein 100 mg/dL (NEG-TRACE) Urine Glucose (UA) Negative mg/dL (NEG) Urine Ketones (Stick) Trace mg/dL (NEG) Urine Blood Negative (NEG) Urine Nitrite Negative (NEG) Urine Bilirubin Small (NEG) Urine Urobilinogen Dipstick 1.0 mg/dL (0.2 mg/dL) Urine Leukocyte Esterase Trace (NEG) Urine RBC 0 /HPF (0-2) Urine WBC Occ /HPF (0-4) Urine Squamous Epithelial Cells Few /LPF Urine Bacteria 0 /HPF (0-FEW) Urine Mucus Slight /LPF Urine Opiates Screen Neg (NEG) Urine Methadone Screen Neg (NEG) Urine Barbiturates Neg (NEG) Urine Phencyclidine Screen Neg (NEG) Urine Amphetamine/Methamphetamine Neg (NEG) Urine Benzodiazepines Screen Neg (NEG) Urine Cocaine Screen Neg (NEG) Urine Cannabinoids Screen Neg (NEG) Urine Ethyl Alcohol Neg (NEG) Assessment and Plan Assessmemt and Plan Assessment Shortness of breath Fatigue COVID Positive Elevated Troponins Elevated Liver enzymes, Abnormal chest xray Plan Covid protocol ( medrol, zosyn, doxy, consider breathing treatment if needed, add remdesivir if becomes O2 dependent) Respiratory isolation Appreciate Cardiac consult - Recommends TTE as outpt, elevated troponins is consistent with demand ischemia Cardiac monitoring Serial cardiac enzymes, EKGs DVT prevention Home meds Full CODE Serial liver enzymes - consider GI consult Comment Review of Relevant I have reviewed the following items paige (where applicable) has been applied. Medications: Current Medications Medications (Trade) Dose Ordered Sig/Bing Route PRN Reason Start Time Stop Time Status Last Admin Dose Admin Piperacillin Sod/ Tazobactam Sod 4.5 gm/Sodium Chloride 100 ml @ 200 mls/hr 1X ONCE IV 01/14/21 13:15 01/14/21 13:44 DC 01/14/21 13:45 Sodium Chloride 1,000 ml @ 1,000 mls/hr 1X ONCE IV 01/14/21 13:15 01/14/21 14:14 DC 01/14/21 13:26 Sodium Chloride 1,000 ml @ 1,000 mls/hr 1X ONCE IV 01/14/21 13:15 01/14/21 14:14 DC 01/14/21 14:35 Acetaminophen (Tylenol) 1,000 mg 1X ONCE PO 01/14/21 13:15 01/14/21 13:16 DC 01/14/21 13:27 Morphine Sulfate (Morphine Sulfate) 5 mg 1X ONCE IV 01/14/21 13:15 01/14/21 13:16 DC 01/14/21 13:27 Morphine Sulfate (Morphine Sulfate) 5 mg 1X ONCE IV 01/14/21 14:30 01/14/21 14:31 DC 01/14/21 14:40 Aspirin (Darinel Aspirin) 325 mg 1X ONCE PO 01/14/21 14:30 01/14/21 14:31 DC 01/14/21 14:39 Iohexol (Omnipaque 350 Mg/ml) 100 ml 1X ONCE IV 01/14/21 14:45 01/14/21 14:46 DC 01/14/21 14:55 Dexamethasone Sodium Phosphate (Decadron) 10 mg 1X ONCE IV 01/14/21 15:30 01/14/21 15:31 DC 01/14/21 15:46 Hydromorphone HCl (Dilaudid) 1 mg 1X ONCE IVP 01/14/21 15:30 01/14/21 15:31 DC 01/14/21 15:46 Azithromycin 250 ml @ 250 mls/hr 1X ONCE IV 01/14/21 15:30 01/14/21 16:29 DC 01/14/21 15:47 Ondansetron HCl (Zofran) 4 mg PRN Q8HRS PRN IV NAUSEA/VOMITING 01/14/21 17:30 01/15/21 17:29 01/14/21 19:59 Morphine Sulfate (Morphine Sulfate) 4 mg PRN Q2HR PRN IV PAIN 01/14/21 17:30 01/15/21 17:29 01/14/21 20:00 Piperacillin Sod/ Tazobactam Sod 3.375 gm/Sodium Chloride 50 ml @ 100 mls/hr Q6HRS IV 01/14/21 18:00 01/15/21 05:18 Doxycycline Hyclate (Vibra-Tab) 100 mg BID PO 01/14/21 21:00 01/15/21 08:09 Aspirin (Darinel Aspirin) 325 mg DAILYWBKFT PO 01/15/21 08:00 01/15/21 08:09 Multivitamins (Thera M Plus) 1 tab DAILY PO 01/15/21 09:00 01/15/21 08:09 Methylprednisolone Sodium Succinate (SOLU-Medrol 40MG VIAL) 40 mg BID IV 01/14/21 21:00 01/15/21 08:08 Justifications for Admission Other Justification RODY KOCH III DO Jan 15, 2021 11:22 am
--- NOTE | 2021-01-15 12:49 | NUR ---
SW following for discharge planning. Spoke with RN and reviewed chart. Pt LORRIE positive, IV Zosyn, 3l 02. Pt on a regular diet. SW following. Addendum: 01/15/21 at 1250 by DISHA MEJIA SW Med Assist following, self-pay.
[2021-01-15 14:38] LABS: CHOLESTEROL/HDL RATIO 3.1
[2021-01-15 15:00] VITALS: BP 121/72
--- NOTE | 2021-01-15 17:16 | PDOC ---
CARDIO Progress Notes Date and Time Date of Service 01/15/2021 Time of Evaluation 1520 Subjective Subjective: No Chest Pain, No Palpitations, Other (SOA better) Vitals Vitals Vital Signs Date Time Temp Pulse Resp B/P (MAP) Pulse Ox O2 Delivery O2 Flow Rate FiO2 01/15/21 15:00 98.4 77 22 121/72 (88) 92 Room Air 98.4 Weight Weight [ ] Input and Output Intake and Output Intake and Output 01/15/21 07:00 Intake Total 2650 ml Output Total 650 ml Balance 2000 ml Intake Oral 500 ml IV Total 2150 ml Output Urine Total 650 ml # Voids 1 Laboratory Labs Laboratory Tests Test 01/14/21 20:00 01/15/21 01:45 Troponin I Quantitative 0.370 ng/mL (0.000-0.055) 0.308 ng/mL (0.000-0.055) White Blood Count 7.0 x10^3/uL (4.0-11.0) Red Blood Count 4.03 x10^6/uL (4.30-5.70) Hemoglobin 13.0 g/dL (13.0-17.5) Hematocrit 37.1 % (39.0-53.0) Mean Corpuscular Volume 92 fL (79-100) Mean Corpuscular Hemoglobin 32 pg (25-35) Mean Corpuscular Hemoglobin Concent 35 g/dL (31-37) Red Cell Distribution Width 12.4 % (11.5-14.5) Platelet Count 155 x10^3/uL (140-400) Neutrophils (%) (Auto) 88 % (31-73) Lymphocytes (%) (Auto) 9 % (24-48) Monocytes (%) (Auto) 3 % (0-9) Eosinophils (%) (Auto) 0 % (0-3) Basophils (%) (Auto) 0 % (0-3) Neutrophils # (Auto) 6.2 x10^3/uL (1.8-7.7) Lymphocytes # (Auto) 0.6 x10^3/uL (1.0-4.8) Monocytes # (Auto) 0.2 x10^3/uL (0.0-1.1) Eosinophils # (Auto) 0.0 x10^3/uL (0.0-0.7) Basophils # (Auto) 0.0 x10^3/uL (0.0-0.2) Sodium Level 140 mmol/L (136-145) Potassium Level 4.4 mmol/L (3.5-5.1) Chloride Level 102 mmol/L (98-107) Carbon Dioxide Level 27 mmol/L (21-32) Anion Gap 11 (6-14) Blood Urea Nitrogen 14 mg/dL (8-26) Creatinine 0.9 mg/dL (0.7-1.3) Estimated GFR (Cockcroft-Gault) 91.3 BUN/Creatinine Ratio 16 (6-20) Glucose Level 132 mg/dL (70-99) Calcium Level 7.4 mg/dL (8.5-10.1) Total Bilirubin 1.0 mg/dL (0.2-1.0) Aspartate Amino Transf (AST/SGOT) 82 U/L (15-37) Alanine Aminotransferase (ALT/SGPT) 115 U/L (16-63) Alkaline Phosphatase 66 U/L (46-116) Total Protein 6.6 g/dL (6.4-8.2) Albumin 3.1 g/dL (3.4-5.0) Albumin/Globulin Ratio 0.9 (1.0-1.7) Triglycerides Level 71 mg/dL (0-150) Cholesterol Level 107 mg/dL (0-200) LDL Cholesterol, Calculated 58 mg/dL (0-100) VLDL Cholesterol, Calculated 14 mg/dL (0-40) Non-HDL Cholesterol Calculated 72 mg/dL (0-129) HDL Cholesterol 35 mg/dL (40-60) Cholesterol/HDL Ratio 3.1 Microbiology Micro Microbiology 01/14/21 Blood Culture - Preliminary, Resulted NO GROWTH AFTER 1 DAY Physical Exam HEENT: Neck Supple W Full Motion Chest: Symmetric LUNGS: Other (diminsihed) Heart: RRR (SR) Abdomen: Soft N/T Extremities: No Calf Tenderness Neurology: alert, oriented, follow commands Assessment Assessment 1. Covid-19 Pneumonia with high fever and dyspnea and WBC noted with left shift 2. Right AOM 3. Elevated DDIMER with Abnormal EKG noted with S1Q3T3 with right axis deviation. No PE per CT. 4. Mild troponin: trop peaked at 0.3, Suspect demand mediated from covid-19 PNA, CP free. 5. Mild transaminitis 6. Atypical CP: mainly with deep breathing Recommendations 1. Continue ASA.No rhythm ectopies 2. Covid-19 treatment initiation per PCP 3. Will consider for limited TTE and note EF and WM Justicifation of Admission Dx: Justifications for Admission: Justification of Admission Dx: Yes SVETLANA LIM APRN Jan 15, 2021 17:16
[2021-01-15 19:00] VITALS: BP 105/62
[2021-01-15] MEDS: guaiFENesin/CODEINE 100mg/10mg 5 ML LIQUID PO PRN (21:26)
[2021-01-15 23:00] VITALS: BP 124/72
[2021-01-16 03:00] VITALS: BP 118/74
[2021-01-16] MEDS: PIPERACILLIN/TAZOBACTAM 3.375 GM in IV NORMAL SALINE 50ML 50 ML IV SCH ×4 (06:04→23:22)
[2021-01-16 07:00] VITALS: BP 138/78
[2021-01-16] MEDS: MULTIVITAMIN with MINERAL TABLET. PO SCH (08:13)
[2021-01-16] MEDS: methylPREDNISolone SOD SUCC PF 40 MG/ML VIAL. IV SCH ×2 (08:13→19:45)
[2021-01-16] MEDS: ASPIRIN 325 MG TABLET PO SCH (08:13)
[2021-01-16] MEDS: DOXYCYCLINE HYCLATE 100 MG TABLET PO SCH ×2 (08:13→19:45)
[2021-01-16] MEDS: guaiFENesin/CODEINE 100mg/10mg 5 ML LIQUID PO PRN ×2 (08:21→19:45)
[2021-01-16 11:00] VITALS: BP 140/83
[2021-01-16] MEDS ORDERED: REMDESIVIR LOAD in IV NORMAL SALINE 250ML TV IV ONE (11:00)
--- NOTE | 2021-01-16 11:45 | PDOC ---
[facility] PROGRESS NOTE Date of Service DOS: DATE: 01/16/21 TIME: 11:41 Chief Complaint Chief Complaint Shortness of breath Fatigue COVID Positive Elevated Troponins Elevated Liver enzymes, Abnormal chest xray History of Present Illness History of Present Illness 01/16- Pt seen, is laying in bed attached to O2 2L. O2 demand seems to be worse, possibly from viral infection. Cardio is considering PRAVEEN, maybe as outpt. Physician called pharmacy to start remdesivir because of his worsening O2 dependence. 01/15- Pt seen and examined. Discussed plan at [facility] covid protocol with exception of remdesivir as pt does not (yet) require Oxygen therapy. D-dimer is also elevated - .71, alk phos is 0.308, AST=82, RDA=107. Chest xray shoed Right lower lung has patchy subsegmental opacities and is hypoexpansion. CT show ground glass consistent with COVID/viral pneumonia. The patient is a pleasant middle-aged male who presents with shortness of breath and weakness. He apparently tested positive for COVID 3 days ago. He has got associated cough. It has been occurring for several days, rated at 9/10, worse with movement, better with sitting still. I discussed the case with ER physician. The patient also has an elevated troponin of 0.359. We are going to admit the patient and consult Cardiology and treat him for his COVID-19. Vitals/I&O Vitals/I&O: Vital Signs Date Time Temp Pulse Resp B/P (MAP) Pulse Ox O2 Delivery O2 Flow Rate FiO2 01/16/21 11:00 97.1 18 18 140/83 (102) 96 Nasal Cannula 2.0 97.1 I & O 01/15/21 01/15/21 01/16/21 15:00 23:00 07:00 Intake Total 480 ml 290 ml 440 ml Balance 480 ml 290 ml 440 ml Physical Exam General: Alert, Oriented X3, Cooperative, No acute distress Heart: Regular rate (SR), Other (distant heart sounds) Abdomen: Soft, No tenderness Extremities: No cyanosis, No edema Skin: No breakdown, No significant lesion Assessment and Plan Assessmemt and Plan Assessment Shortness of breath, worsening hypoxia Fatigue COVID Positive Elevated Troponins Elevated Liver enzymes, Abnormal chest xray Plan Remdesivir (Day 1) Covid protocol ( medrol, zosyn, doxy, consider breathing treatment if needed) Continued antibiotic treatments- doxy, zosyn Respiratory isolation Appreciate Cardiac consult - Recommends TTE as outpt, elevated troponins is consistent with demand ischemia Cardiac monitoring Serial cardiac enzymes, EKGs DVT prevention Home meds Full CODE Serial liver enzymes - consider GI consult Comment Review of Relevant I have reviewed the following items paige (where applicable) has been applied. Justifications for Admission Other Justification RODY KOCH III DO Jan 16, 2021 11:45 am
[2021-01-16] MEDS: ACETAMINOPHEN 325 MG TABLET. PO PRN (12:54)
[2021-01-16 15:00] VITALS: BP 127/76
--- NOTE | 2021-01-16 16:51 | PDOC ---
PROGRESS NOTES Date of Service: DATE: 01/16/21 TIME: 16:47 Subjective Subjective c/o dyspnea Objective Objective Vital Signs Date Time Temp Pulse Resp B/P (MAP) Pulse Ox O2 Delivery O2 Flow Rate FiO2 01/16/21 15:00 97.2 74 20 127/76 (93) 100 Nasal Cannula 2.0 97.2 Intake and Output 01/16/21 07:00 Intake Total 1260 ml Balance 1260 ml Intake Oral 1160 ml IV Total 100 ml # Voids 2 Physical Exam Abdomen: Soft, No tenderness Heart: Regular rate (SR), Other (distant heart sounds) Extremities: No cyanosis, No edema General: Alert HEENT: Atraumatic, Mucous membr. moist/pink Lungs: Other (Scattered crepitations bilaterally) Neuro: Normal speech Psych/Mental Status: Mental status NL, Mood NL Skin: No breakdown, No significant lesion Assessment Assessment 1. Covid-19 Pneumonia: Initiated on remdesivir. 2. Slight troponin elevation, most probably demand ischemia. Patient had pleuritic chest pain on admission but is currently chest pain-free. Telemetry did not show any significant arrhythmias. Plan for 2D echo and ischemic evaluation outpatient. 3. Elevated DDIMER. No PE per CT. Plan Plan of Care Problems Medical Problems: (1) Fever Status: Acute (2) Lab test positive for detection of COVID-19 virus Status: Acute (3) NSTEMI (non-ST elevated myocardial infarction) Status: Acute (4) Pneumonia of both lower lobes Status: Acute (5) Shortness of breath Status: Acute Comment Review of Relevant I have reviewed the following items paige (where applicable) has been applied. Labs Microbiology 01/14/21 Urine Culture - Final, Complete 01/14/21 Blood Culture - Preliminary, Resulted NO GROWTH AFTER 2 DAYS Medications Current Medications Acetaminophen (Tylenol) 650 mg PRN Q6HRS PRN PO MILD PAIN / TEMP > 100.3'F Last administered on 01/16/21at 12:54; Start 01/16/21 at 12:45 Lactobacillus Rhamnosus (Culturelle) 1 cap BID PO ; Start 01/16/21 at 21:00 Remdesivir 100 mg/ Sodium Chloride 230 ml @ 460 mls/hr Q24H IV ; Start 01/17/21 at 11:00; Stop 01/20/21 at 11:29 Remdesivir 200 mg/ Sodium Chloride 210 ml @ 210 mls/hr 1X ONCE IV Last administered on 01/16/21at 11:44; Start 01/16/21 at 11:00; Stop 01/16/21 at 11:59; Status DC Vitals/I & O Vital Sign - Last 24 Hours 01/15/21 01/15/21 01/15/21 01/16/21 19:00 19:50 23:00 03:00 Temp 98.1 97.7 96.8 98.1 97.7 96.8 Pulse 70 64 64 Resp 18 16 16 B/P (MAP) 105/62 (76) 124/72 (89) 118/74 (89) Pulse Ox 93 97 98 O2 Delivery Room Air Room Air Nasal Cannula O2 Flow Rate 2.0 01/16/21 01/16/21 01/16/21 01/16/21 07:00 07:45 11:00 15:00 Temp 97.3 97.1 97.2 97.3 97.1 97.2 Pulse 63 18 74 Resp 18 18 20 B/P (MAP) 138/78 (98) 140/83 (102) 127/76 (93) Pulse Ox 96 96 100 O2 Delivery Room Air Room Air Nasal Cannula Nasal Cannula O2 Flow Rate 2.0 2.0 Intake and Output 01/15/21 01/15/21 01/16/21 15:00 23:00 07:00 Intake Total 480 ml 290 ml 490 ml Balance 480 ml 290 ml 490 ml JUNAID SAMSON MD Jan 16, 2021 16:51
[2021-01-16] MEDS: POLYETHYLENE GLYCOL 3350 17 GM PACKET. PO PRN (17:20)
[2021-01-16] MEDS: LACTOBACILLUS RHAMNOSUS GG 1 CAPSULE. PO SCH (19:45)
[2021-01-16 19:50] VITALS: BP 147/86
[2021-01-16] MEDS: ENOXAPARIN 40 MG/0.4 ML SYRINGE. SQ SCH (21:26)
[2021-01-16 23:00] VITALS: BP 145/88
[2021-01-17 03:19] VITALS: BP 128/77
[2021-01-17] MEDS: PIPERACILLIN/TAZOBACTAM 3.375 GM in IV NORMAL SALINE 50ML 50 ML IV SCH ×3 (05:04→17:05)
[2021-01-17 07:00] VITALS: BP 141/86
[2021-01-17] MEDS: LACTOBACILLUS RHAMNOSUS GG 1 CAPSULE. PO SCH ×2 (08:51→20:45)
[2021-01-17] MEDS: MULTIVITAMIN with MINERAL TABLET. PO SCH (08:51)
[2021-01-17] MEDS: DOXYCYCLINE HYCLATE 100 MG TABLET PO SCH ×2 (08:51→20:45)
[2021-01-17] MEDS: ASPIRIN 325 MG TABLET PO SCH (08:51)
[2021-01-17] MEDS: methylPREDNISolone SOD SUCC PF 40 MG/ML VIAL. IV SCH ×2 (08:51→20:45)
[2021-01-17] MEDS: ACETAMINOPHEN 325 MG TABLET. PO PRN ×2 (09:03→20:45)
[2021-01-17 11:00] VITALS: BP 145/86
[2021-01-17] MEDS: REMDESIVIR 100mg in NORMAL SALINE 250ML X 4 DAYS IV SCH (11:09)
--- NOTE | 2021-01-17 12:02 | PDOC ---
[facility] [facility] PROGRESS NOTE Date of Service DOS: DATE: 01/17/21 TIME: 11:57 Chief Complaint Chief Complaint Shortness of breath Fatigue COVID Positive Elevated Troponins Elevated Liver enzymes, Abnormal chest xray History of Present Illness History of Present Illness 01/17 - Pt seen, spoke with daughter who acted as supervisor weaving. Pt has a new complaint of ear pain that tylenol did not help. Difficulty hearing through the right ear as well. Pt states his hypoxia has been better, but notes continued productive cough. Tolerated the remdesivir yesterday well. Notes increased SOB when getting up for restroom. 01/16- Pt seen, is laying in bed attached to O2 2L. O2 demand seems to be worse, possibly from viral infection. Cardio is considering PRAVEEN, maybe as outpt. Physician called pharmacy to start remdesivir because of his worsening O2 dependence. 01/15- Pt seen and examined. Discussed plan at [facility] covid protocol with exception of remdesivir as pt does not (yet) require Oxygen therapy. D-dimer is also elevated - .71, alk phos is 0.308, AST=82, FYY=576. Chest xray shoed Right lower lung has patchy subsegmental opacities and is hypoexpansion. CT show ground glass consistent with COVID/viral pneumonia. The patient is a pleasant middle-aged male who presents with shortness of breath and weakness. He apparently tested positive for COVID 3 days ago. He has got associated cough. It has been occurring for several days, rated at 9/10, worse with movement, better with sitting still. I discussed the case with ER physician. The patient also has an elevated troponin of 0.359. We are going to admit the patient and consult Cardiology and treat him for his COVID-19. Vitals/I&O Vitals/I&O: Vital Signs Date Time Temp Pulse Resp B/P (MAP) Pulse Ox O2 Delivery O2 Flow Rate FiO2 01/17/21 11:00 98.2 58 24 145/86 (105) 97 Nasal Cannula 2.0 98.2 I & O 01/16/21 01/16/21 01/17/21 15:00 23:00 07:00 Intake Total 260 ml 420 ml Balance 260 ml 420 ml Physical Exam General: Alert, Oriented X3, Cooperative Heart: Regular rate (SR), Other (distant heart sounds) Abdomen: Soft, No tenderness Extremities: No cyanosis, No edema Skin: No breakdown, No significant lesion Review of Systems Review of Systems: Ear pain Assessment and Plan Assessmemt and Plan Assessment Shortness of breath, Hypoxia better since 01/16 Fatigue COVID Positive Elevated Troponins Elevated Liver enzymes, Abnormal chest xray Ear Pain Plan Remdesivir (Day 2) Covid protocol ( medrol, zosyn, doxy, consider breathing treatment if needed) Continued antibiotic treatments- doxy, zosyn Respiratory isolation Appreciate Cardiac consult - Recommends TTE as outpt, elevated troponins is consistent with demand ischemia Cardiac monitoring Serial cardiac enzymes, EKGs DVT prevention Home meds Full CODE Serial liver enzymes - consider GI consult Comment Review of Relevant I have reviewed the following items paige (where applicable) has been applied. Medications: Current Medications Medications (Trade) Dose Ordered Sig/Bing Route PRN Reason Start Time Stop Time Status Last Admin Dose Admin Remdesivir 100 mg/ Sodium Chloride 230 ml @ 460 mls/hr Q24H IV 01/17/21 11:00 01/20/21 11:29 01/17/21 11:09 Acetaminophen (Tylenol) 650 mg PRN Q6HRS PRN PO MILD PAIN / TEMP > 100.3'F 01/16/21 12:45 01/17/21 09:03 Lactobacillus Rhamnosus (Culturelle) 1 cap BID PO 01/16/21 21:00 01/17/21 08:51 Polyethylene Glycol (miraLAX PACKET) 17 gm PRN DAILY PRN PO CONSTIPATION 01/16/21 17:15 01/16/21 17:20 Enoxaparin Sodium (Lovenox 40mg Syringe) 40 mg Q24H SQ 01/16/21 21:00 01/16/21 21:26 Justifications for Admission Other Justification RODY KOCH III DO Jan 17, 2021 12:02 pm
--- NOTE | 2021-01-17 13:45 | PDOC ---
PROGRESS NOTES Date of Service: DATE: 01/17/21 TIME: 13:44 Subjective Subjective c/o ear pain, cough Objective Objective Vital Signs Date Time Temp Pulse Resp B/P (MAP) Pulse Ox O2 Delivery O2 Flow Rate FiO2 01/17/21 11:00 98.2 58 24 145/86 (105) 97 Nasal Cannula 2.0 98.2 Intake and Output 01/17/21 07:00 Intake Total 680 ml Balance 680 ml Intake Oral 420 ml IV Total 260 ml # Voids 7 Physical Exam Abdomen: Soft, No tenderness Heart: Regular rate (SR), Other (distant heart sounds) Extremities: No cyanosis, No edema General: Alert, Oriented X3, Cooperative HEENT: Atraumatic, Mucous membr. moist/pink Lungs: Other (Scattered crepitations bilaterally) Neuro: Normal speech Psych/Mental Status: Mental status NL, Mood NL Skin: No breakdown, No significant lesion Assessment Assessment 1. Covid-19 Pneumonia: Initiated on remdesivir. 2. Slight troponin elevation, most probably demand ischemia. Patient had pleuritic chest pain on admission but is currently chest pain-free. Telemetry did not show any significant arrhythmias. Plan for 2D echo and ischemic evaluation outpatient. 3. Elevated DDIMER. No PE per CT. Plan Plan of Care Problems Medical Problems: (1) Fever Status: Acute (2) Lab test positive for detection of COVID-19 virus Status: Acute (3) NSTEMI (non-ST elevated myocardial infarction) Status: Acute (4) Pneumonia of both lower lobes Status: Acute (5) Shortness of breath Status: Acute Comment Review of Relevant I have reviewed the following items paige (where applicable) has been applied. Labs Microbiology 01/14/21 Urine Culture - Final, Complete 01/14/21 Blood Culture - Preliminary, Resulted NO GROWTH AFTER 2 DAYS Medications Current Medications Enoxaparin Sodium (Lovenox 40mg Syringe) 40 mg Q24H SQ Last administered on at 21:26; Start 01/16/21 at 21:00 Lactobacillus Rhamnosus (Culturelle) 1 cap BID PO Last administered on 01/17/21at 08:51; Start 01/16/21 at 21:00 Polyethylene Glycol (miraLAX PACKET) 17 gm PRN DAILY PRN PO CONSTIPATION Last administered on 01/16/21at 17:20; Start 01/16/21 at 17:15 Remdesivir 100 mg/ Sodium Chloride 230 ml @ 460 mls/hr Q24H IV Last administered on 01/17/21at 11:09; Start 01/17/21 at 11:00; Stop 01/20/21 at 11:29 Vitals/I & O Vital Sign - Last 24 Hours 01/16/21 01/16/21 01/16/21 01/16/21 15:00 19:45 19:50 23:00 Temp 97.2 96.7 98.0 97.2 96.7 98.0 Pulse 74 67 68 Resp 20 20 20 B/P (MAP) 127/76 (93) 147/86 (106) 145/88 (107) Pulse Ox 100 94 93 O2 Delivery Nasal Cannula Room Air Room Air Room Air O2 Flow Rate 2.0 01/17/21 01/17/21 01/17/21 01/17/21 03:19 07:00 08:00 11:00 Temp 97.4 98.1 98.2 97.4 98.1 98.2 Pulse 66 73 58 Resp 20 20 24 B/P (MAP) 128/77 (94) 141/86 (104) 145/86 (105) Pulse Ox 96 97 97 O2 Delivery Nasal Cannula Nasal Cannula Nasal Cannula Nasal Cannula O2 Flow Rate 2.0 2.0 2.0 2.0 Intake and Output 01/16/21 01/16/21 01/17/21 15:00 23:00 07:00 Intake Total 260 ml 420 ml Balance 260 ml 420 ml JUNAID SAMSON MD Jan 17, 2021 13:45
[2021-01-17 15:00] VITALS: BP 151/86
[2021-01-17 19:00] VITALS: BP 158/88
[2021-01-17] MEDS: guaiFENesin/CODEINE 100mg/10mg 5 ML LIQUID PO PRN (20:45)
[2021-01-17] MEDS: ENOXAPARIN 40 MG/0.4 ML SYRINGE. SQ SCH (20:46)
[2021-01-17] MEDS ORDERED: NEOMYCIN/POLYMYXIN/HC OTIC SUSPENSION 10ML BOTTLE. AD PRN (22:00)
[2021-01-17 23:00] VITALS: BP 161/94
[2021-01-18] MEDS: PIPERACILLIN/TAZOBACTAM 3.375 GM in IV NORMAL SALINE 50ML 50 ML IV SCH ×4 (00:41→17:50)
[2021-01-18 03:21] VITALS: BP 150/88
[2021-01-18 06:47] VITALS: BP 149/95
[2021-01-18] MEDS: ASPIRIN 325 MG TABLET PO SCH (09:04)
[2021-01-18] MEDS: LACTOBACILLUS RHAMNOSUS GG 1 CAPSULE. PO SCH ×2 (09:04→21:49)
[2021-01-18] MEDS: MULTIVITAMIN with MINERAL TABLET. PO SCH (09:05)
[2021-01-18] MEDS: methylPREDNISolone SOD SUCC PF 40 MG/ML VIAL. IV SCH ×2 (09:05→21:49)
[2021-01-18] MEDS: DOXYCYCLINE HYCLATE 100 MG TABLET PO SCH ×2 (09:05→21:49)
[2021-01-18 11:00] VITALS: BP 155/91
[2021-01-18] MEDS: REMDESIVIR 100mg in NORMAL SALINE 250ML X 4 DAYS IV SCH (11:26)
[2021-01-18] MEDS: POLYETHYLENE GLYCOL 3350 17 GM PACKET. PO PRN (11:31)
--- NOTE | 2021-01-18 12:46 | PDOC ---
CARD[facility] Progress Notes Date and Time Date of Service 01/18/21 Time of Evaluation 1200 Subjective Subjective: No Chest Pain, No Palpitations, Other (not more SOA) Vitals Vitals Vital Signs Date Time Temp Pulse Resp B/P (MAP) Pulse Ox O2 Delivery O2 Flow Rate FiO2 01/18/21 11:00 95.4 58 24 155/91 (112) 95 Nasal Cannula 95.4 01/18/21 08:00 2.0 Weight Weight [ ] Input and Output Intake and Output Intake and Output 01/18/21 07:00 Intake Total 1040 ml Balance 1040 ml Intake Oral 660 ml IV Total 380 ml # Voids 4 Microbiology Micro Microbiology 01/14/21 Urine Culture - Final, Complete 01/14/21 Blood Culture - Preliminary, Resulted NO GROWTH AFTER 3 DAYS Physical Exam HEENT: Neck Supple W Full Motion Chest: Symmetric LUNGS: Other (on NC) Heart: RRR (SR) Abdomen: Soft N/T Extremities: No Calf Tenderness Neurology: alert, oriented, follow commands Assessment Assessment 1. Covid-19 Pneumonia: Initiated on remdesivir. 2. Slight troponin elevation, most probably demand ischemia. Patient had pleuritic chest pain on admission but is currently chest pain-free. Telemetry did not show any significant arrhythmias. 3. Elevated DDIMER. No PE per CT. 4. Hypertension Recommendations Continue ASA Add lisinopril Outpatient echo and ischemic evaluation when recovered from COVID. Ongoing lung optimization, treatment of COVID PNA Justicifation of Admission Dx: Justifications for Admission: Justification of Admission Dx: Yes LEV GALINDO APRN Jan 18, 2021 12:46
[2021-01-18 15:00] VITALS: BP 164/90
--- NOTE | 2021-01-18 15:03 | NUR ---
SW following for discharge planning. Spoke with RN and reviewed chart. Pt remains on a regular diet and IV Zosyn. Pt down to 2l 02. Pt on IV Remdesivir through 01/20. SW following.
[2021-01-18] MEDS: ZINC SULFATE 220 MG CAPSULE. PO SCH (15:18)
[2021-01-18] MEDS: ASCORBIC ACID 500 MG TABLET PO SCH (15:18)
--- NOTE | 2021-01-18 15:25 | PDOC ---
PROGRESS NOTES Date of Service: DATE: 01/18/21 TIME: 15:25 Chief Complaint Chief Complaint Shortness of breath Fatigue COVID Positive Elevated Troponins Elevated Liver enzymes, Abnormal chest xray History of Present Illness History of Present Illness 01/18,. feels better, still hypoxia on 2 liters, cough better, cont currentl likely dc in AM 01/17 - Pt seen, spoke with daughter who acted as caterer's aide. Pt has a new complaint of ear pain that tylenol did not help. Difficulty hearing through the right ear as well. Pt states his hypoxia has been better, but notes continued productive cough. Tolerated the remdesivir yesterday well. Notes increased SOB when getting up for restroom. 01/16- Pt seen, is laying in bed attached to O2 2L. O2 demand seems to be worse, possibly from viral infection. Cardio is considering [facility], maybe as outpt. Physician called pharmacy to start remdesivir because of his worsening O2 dependence. 01/15- Pt seen and examined. Discussed plan at [facility] ([facility]3]- [facility] covid protocol with exception of remdesivir as pt does not (yet) require Oxygen therapy. D-dimer is also elevated - .71, alk phos is 0.308, AST=82, PDT=156. Chest xray shoed Right lower lung has patchy subsegmental opacities and is hypoexpansion. CT show ground glass consistent with COVID/viral pneumonia. The patient is a pleasant middle-aged male who presents with shortness of breath and weakness. He apparently tested positive for COVID 3 days ago. He has got associated cough. It has been occurring for several days, rated at 9/10, worse with movement, better with sitting still. I discussed the case with ER physician. The patient also has an elevated troponin of 0.359. We are going to admit the patient and consult Cardiology and treat him for his COVID-19. Vitals Vitals Vital Signs Date Time Temp Pulse Resp B/P (MAP) Pulse Ox O2 Delivery O2 Flow Rate FiO2 01/18/21 15:00 96.1 65 22 164/90 (114) 94 Nasal Cannula 96.1 01/18/21 08:00 2.0 Physical Exam General: Alert, Oriented X3, Cooperative Heart: Regular rate (SR), Other (distant heart sounds) Abdomen: Soft, No tenderness Extremities: No cyanosis, No edema Skin: No breakdown, No significant lesion Assessment and Plan Assessmemt and Plan Problems Medical Problems: (1) Fever Status: Acute (2) Lab test positive for detection of COVID-19 virus Status: Acute (3) NSTEMI (non-ST elevated myocardial infarction) Status: Acute (4) Pneumonia of both lower lobes Status: Acute (5) Shortness of breath Status: Acute Comment Review of Relevant I have reviewed the following items paige (where applicable) has been applied. Labs Microbiology 01/14/21 Urine Culture - Final, Complete 01/14/21 Blood Culture - Preliminary, Resulted NO GROWTH AFTER 4 DAYS Medications Current Medications Piperacillin Sod/ Tazobactam Sod 4.5 gm/Sodium Chloride 100 ml @ 200 mls/hr 1X ONCE IV Last administered on 01/14/21at 13:45; Start 01/14/21 at 13:15; Stop 01/14/21 at 13:44; Status DC Sodium Chloride 1,000 ml @ 1,000 mls/hr 1X ONCE IV Last administered on 01/14/21at 13:26; Start 01/14/21 at 13:15; Stop 01/14/21 at 14:14; Status DC Sodium Chloride 1,000 ml @ 1,000 mls/hr 1X ONCE IV Last administered on 01/14/21at 14:35; Start 01/14/21 at 13:15; Stop 01/14/21 at 14:14; Status DC Acetaminophen (Tylenol) 1,000 mg 1X ONCE PO Last administered on 01/14/21at 13:27; Start 01/14/21 at 13:15; Stop 01/14/21 at 13:16; Status DC Morphine Sulfate (Morphine Sulfate) 5 mg 1X ONCE IV Last administered on 01/14/21at 13:27; Start 01/14/21 at 13:15; Stop 01/14/21 at 13:16; Status DC Morphine Sulfate (Morphine Sulfate) 5 mg 1X ONCE IV Last administered on 01/14/21at 14:40; Start 01/14/21 at 14:30; Stop 01/14/21 at 14:31; Status DC Aspirin (Darinel Aspirin) 325 mg 1X ONCE PO Last administered on 01/14/21at 14:39; Start 01/14/21 at 14:30; Stop 01/14/21 at 14:31; Status DC Iohexol (Omnipaque 350 Mg/ml) 100 ml 1X ONCE IV Last administered on 01/14/21at 14:55; Start 01/14/21 at 14:45; Stop 01/14/21 at 14:46; Status DC Info (CONTRAST GIVEN -- Rx MONITORING) 1 each PRN DAILY PRN MC SEE COMMENTS; Start 01/14/21 at 14:45; Stop 01/16/21 at 14:44; Status DC Dexamethasone Sodium Phosphate (Decadron) 10 mg 1X ONCE IV Last administered on 01/14/21at 15:46; Start 01/14/21 at 15:30; Stop 01/14/21 at 15:31; Status DC Hydromorphone HCl (Dilaudid) 1 mg 1X ONCE IVP Last administered on 01/14/21at 15:46; Start 01/14/21 at 15:30; Stop 01/14/21 at 15:31; Status DC Azithromycin 250 ml @ 250 mls/hr 1X ONCE IV Last administered on 01/14/21at 15:47; Start 01/14/21 at 15:30; Stop 01/14/21 at 16:29; Status DC Ondansetron HCl (Zofran) 4 mg PRN Q8HRS PRN IV NAUSEA/VOMITING Last administered on 01/14/21at 19:59; Start 01/14/21 at 17:30; Stop 01/15/21 at 17:29; Status DC Morphine Sulfate (Morphine Sulfate) 4 mg PRN Q2HR PRN IV PAIN Last administered on 01/14/21at 20:00; Start 01/14/21 at 17:30; Stop 01/15/21 at 17:29; Status DC Acetaminophen (Tylenol) 650 mg PRN Q4HRS PRN PO FEVER > 100.3'F; Start 01/14/21 at 17:30; Stop 01/15/21 at 17:29; Status DC Piperacillin Sod/ Tazobactam Sod (Zosyn Per Pharmacy) 1 each PRN DAILY PRN MC SEE COMMENTS; Start 01/14/21 at 17:45 Piperacillin Sod/ Tazobactam Sod 3.375 gm/Sodium Chloride 50 ml @ 100 mls/hr Q6HRS IV Last administered on 01/18/21at 12:00; Start 01/14/21 at 18:00 Doxycycline Hyclate (Vibra-Tab) 100 mg BID PO Last administered on 01/18/21 09:05; Start 01/14/21 at 21:00 Aspirin (Darinel Aspirin) 325 mg DAILYWBKFT PO Last administered on 01/18/21 09:04; Start 01/15/21 at 08:00 Multivitamins (Thera M Plus) 1 tab DAILY PO Last administered on 01/18/21 09:05; Start 01/15/21 at 09:00 Guaifenesin/ Codeine Phosphate (Robitussin Ac) 5 ml PRN Q6HRS PRN PO COUGH Last administered on 01/17/21 20:45; Start 01/14/21 at 17:45 Methylprednisolone Sodium Succinate (SOLU-Medrol 40MG VIAL) 40 mg BID IV Last administered on 01/18/21 09:05; Start 01/14/21 at 21:00 Remdesivir 200 mg/ Sodium Chloride 210 ml @ 210 mls/hr 1X ONCE IV Last admini stered on 01/16/21at 11:44; Start 01/16/21 at 11:00; Stop 01/16/21 at 11:59; Status DC Remdesivir 100 mg/ Sodium Chloride 230 ml @ 460 mls/hr Q24H IV Last administered on 01/18/21 11:26; Start 01/17/21 at 11:00; Stop 01/20/21 at 11:29 Acetaminophen (Tylenol) 650 mg PRN Q6HRS PRN PO MILD PAIN / TEMP > 100.3'F Last administered on 01/17/21at 20:45; Start 01/16/21 at 12:45 Lactobacillus Rhamnosus (Culturelle) 1 cap BID PO Last administered on 01/18/21 09:04; Start 01/16/21 at 21:00 Polyethylene Glycol (miraLAX PACKET) 17 gm PRN DAILY PRN PO CONSTIPATION Last administered on 01/18/21 11:31; Start 01/16/21 at 17:15 Enoxaparin Sodium (Lovenox 40mg Syringe) 40 mg Q24H SQ Last administered on 01/17/21at 20:46; Start 01/16/21 at 21:00 Neomycin/ Polymyxin/ Hydrocortisone (Cortisporin Otic) 1 drop PRN Q6HRS PRN AD EAR PAIN Last administered on 01/17/21at 22:07; Start 01/17/21 at 22:00 Ascorbic Acid (Vitamin C) 500 mg DAILY PO Last administered on 01/18/21at 15:18; Start 01/18/21 at 14:15 Zinc Sulfate (Orazinc) 220 mg DAILY PO Last administered on 01/18/21at 15:18; Start 01/18/21 at 14:15 Lisinopril (Prinivil) 10 mg DAILY PO ; Start 01/18/21 at 16:00 Active Scripts Active Augmentin 875-125 Tablet (Amoxicillin/Potassium Clav) 1 Each Tablet 1 Tab PO BID 10 Days Anaprox Ds (Naproxen Sodium) 550 Mg Tablet 1 Tab PO BID PRN 15 Days Vitals/I & O Vital Sign - Last 24 Hours 01/17/21 01/17/21 01/17/21 01/18/21 19:00 20:11 23:00 03:21 Temp 96.5 98.6 97.6 96.5 98.6 97.6 Pulse 61 57 59 Resp 20 18 20 B/P (MAP) 158/88 (111) 161/94 (116) 150/88 (108) Pulse Ox 94 92 95 O2 Delivery Room Air Nasal Cannula Room Air Nasal Cannula O2 Flow Rate 2.0 01/18/21 01/18/21 01/18/21 01/18/21 06:47 08:00 11:00 15:00 Temp 98.5 95.4 96.1 98.5 95.4 96.1 Pulse 69 58 65 Resp 20 24 22 B/P (MAP) 149/95 (113) 155/91 (112) 164/90 (114) Pulse Ox 90 95 94 O2 Delivery Nasal Cannula Nasal Cannula Nasal Cannula Nasal Cannula O2 Flow Rate 2.0 Intake and Output 01/17/21 01/17/21 01/18/21 15:00 23:00 07:00 Intake Total 760 ml 180 ml 100 ml Balance 760 ml 180 ml 100 ml Justicifation of Admission Dx: Justifications for Admission: Justification of Admission Dx: Yes PEPPER ROWLAND MD Jan 18, 2021 15:25
[2021-01-18] MEDS ORDERED: oxyCODONE/APAP 5/325 1 TAB TABLET PO PRN (15:45)
[2021-01-18] MEDS: LISINOPRIL 10 MG TABLET PO SCH (16:07)
[2021-01-18 19:00] VITALS: BP 157/87
[2021-01-18] MEDS: ENOXAPARIN 40 MG/0.4 ML SYRINGE. SQ SCH (21:50)
[2021-01-18 23:00] VITALS: BP 155/98
[2021-01-19] MEDS: PIPERACILLIN/TAZOBACTAM 3.375 GM in IV NORMAL SALINE 50ML 50 ML IV SCH ×2 (00:07→06:09)
[2021-01-19 02:48] VITALS: BP 148/95
[2021-01-19 07:00] VITALS: BP 118/75
[2021-01-19] MEDS: ASCORBIC ACID 500 MG TABLET PO SCH (07:57)
[2021-01-19] MEDS: ASPIRIN 325 MG TABLET PO SCH (07:57)
[2021-01-19] MEDS: DOXYCYCLINE HYCLATE 100 MG TABLET PO SCH (07:57)
[2021-01-19] MEDS: MULTIVITAMIN with MINERAL TABLET. PO SCH (07:57)
[2021-01-19] MEDS: ZINC SULFATE 220 MG CAPSULE. PO SCH (07:57)
[2021-01-19] MEDS: LACTOBACILLUS RHAMNOSUS GG 1 CAPSULE. PO SCH (07:57)
[2021-01-19] MEDS: LISINOPRIL 10 MG TABLET PO SCH (07:58)
[2021-01-19] MEDS: methylPREDNISolone SOD SUCC PF 40 MG/ML VIAL. IV SCH (07:58)
[2021-01-19 11:00] VITALS: BP 119/83
[2021-01-19] MEDS ORDERED: PRED-220 PO (11:44)
[2021-01-19] MEDS ORDERED: ASPI325T8 PO (11:44)
[2021-01-19] MEDS ORDERED: AMOX1TAB61 PO (11:44)
[2021-01-19] MEDS: REMDESIVIR 100mg in NORMAL SALINE 250ML X 4 DAYS IV SCH (12:08)
--- NOTE | 2021-01-19 13:45 | NUR ---
PEPE following for discharge planning. Spoke with RN and reviewed chart. Pt to discharge home, self-care. 6 min walk ordered for possible home 02 setup. Pt is self pay. [facility]PE following. Addendum: 01/19/21 at 1545 by DISHA CANTU 6 min walk results indicated 02 needed on discharge. [facility]PE spoke with pt and pt's son Shashi Apple ([phone]) and they can afford the $120 per month private pay for 02 from [facility]. Pt and family stated no preference in 02 provider. PEPE obtained order and faxed it with clinicals to Bethany at [facility]. pt choice of vendor form was completed. Family to call and make payment arrangements. Tank provided to pt for transport home via family at 1630. Son verbalized understanding that he is to call the number on the tank upon arrival home for home 02 setup. No further [facility]PE needs at this time. Addendum: 01/20/21 at 0857 by DISHA CANTU SW confirmed 02 setup with [facility].
--- NOTE | 2021-01-19 17:18 | NUR ---
Discharge Note: [facility] Discharge instructions and discharge home medications reviewed with the patient and a copy given. All questions have been answered and understanding verbalized. The following instructions and handouts were given: Prescriptions for aspirin, augmentin, prednisone and naproxen given to the patient Home oxygen 4 liters at rest and with exertion. Watch out for severe dyspnea, severe body weakness, and worsening symptoms. Seek emergent care. COVID precautions, isolation for 10 days since testing positive. Discussed proper oxygen use, no smoking at home. Follow up with PCP in weeks Discontinued lines and drains: peripheral IV intact, patient tolerated removal, no complications noted Patient discharged to home with self care via wheelchair on oxygen 4LPM per nasal cannula accompanied by family members.
== END 2021-01-19 17:00 | disposition home or self-care (01) | DRG 177 ==
LOC: ER 12:35 → ED HOLD 15:45 → 6 SOUTH 20:43
PROVIDERS: ADMIT Internal Medicine; ATTEND Internal Medicine
PROC: XW033E5 Introduction of Remdesivir Anti-infective into Peripheral Vein, Percutaneous Approach, New Technology Group 5 (ICD-10-PCS; principal; 2021-01-16)
DX: U07.1 COVID-19 (principal); I21.4 Non-ST elevation (NSTEMI) myocardial infarction; J12.82 Pneumonia due to coronavirus disease 2019; J96.01 Acute respiratory failure with hypoxia; E87.1 Hypo-osmolality and hyponatremia; H66.91 Otitis media, unspecified, right ear; R74.01 Elevation of levels of liver transaminase levels; I10 Essential (primary) hypertension; Z99.81 Dependence on supplemental oxygen; Z83.3 Family history of diabetes mellitus
CPT/HCPCS: 36415; 71045; 71275; 80053; 80061; 80307; 81001; 83605; 83690; 83735; 83880; 84145; 84484; 85007; 85025; 85379; 87040; 87086; 93005; 94618; 96365; 96375; J0456; J1100; J1170; J1650; J2270; J2405; J2543; J2920; J7030; J7050; Q9967; 99285-25; G0378